=== PATIENT | male | born 2000 | race African-American/Black ===

== ENCOUNTER 2025-11-18 22:37 | Emergency (ER) | payer SELFPAY ==
[~2025-11-18] VITALS: Ht 182.9 cm; Wt 99.7 kg
[2025-11-19 01:18] VITALS: BP 107/59; TEMP 96.8; O2SAT 98
== END 2025-11-19 01:25 | disposition home or self-care (01) ==
LOC: M ED 22:37
DX: S93.401A Sprain of unspecified ligament of right ankle, initial encounter (principal); S43.402A Unspecified sprain of left shoulder joint, initial encounter; W00.0XXA Fall on same level due to ice and snow, initial encounter; F12.10 Cannabis abuse, uncomplicated; M54.50 Low back pain, unspecified; Y92.481 Parking lot as the place of occurrence of the external cause; Y93.89 Activity, other specified; Y99.9 Unspecified external cause status